=== PATIENT | male | born 1945 | race Caucasian/White ===

== ENCOUNTER 2016-12-23 06:56 | Outpatient (CLI) | payer MEDICARE ==
[~2016-12-23] VITALS: Ht 175.3 cm; Wt 92.3 kg
--- NOTE | ~2016-12-23 | HEMODYNAMI ---
PATIENT:ELY CEJA MEDICAL RECORD: [id number] : 49 LOCATION:[facility] ADMISSION DATE: 12/23/16 Generatedon:12/23/201610:37 Patient name: ELY CEJA Patient #: [id number] SSN: DO B: 1945 Date of study: 12/23/2016 Page: Of Hemodynamic Procedure Report Patient Data Patient Demographics Procedure consent was obtained First Name: ELY Gender: Male Last Name: MARCIAL : 1945 [facility] Initial: L Age: 71 year(s) Patient #: [id number] Race: Additional ID: [id number] Contact details [address]: [address] [place] [address] [facility] State: [place] City: [place] Zip code: [address] Past Medical History Allergies Allergen Reaction Date Comments Reported Morphine 03/25/2016 Other allergy 12/23/2016 morphine Admission Admission Data Admission Date: 12/23/2016 Admission Time: 6:56 Lab Results Lab Result Date: 12/23/2016 Lab Result Time: 7:20 Biochemistry Name Units Result Min Max BUN mg/dl 23 --(----)-* 7 18 Creatinine mg/dl 1.5 --(----)-* 0.6 1.3 CBC Name Units Result Min Max Hematocrit % 39.2 -*(----)-- 42 54 Hemoglobin g/dl 13.6 --(*---)-- 13.5 17.5 Procedure Procedure Types Cath Procedure Peripheral Cath Diagnostic Procedure Cath Peripheral Kejds-Ozvesbg-Lbg-Off Procedure Description Procedure Date Procedure Date: 12/23/2016 Procedure Start Time: 10:25 Procedure End Time: 10:36 Procedure Staff Name Function Cristóbal Cardenas MD Performing Physician Ana Rodriguez RT Scrub Judith Holder RN Nurse Jose Enrique Nava RT Monitor Procedure Data Cath Procedure Fluoroscopy Diagnostic fluoroscopy Total fluoroscopy Time: 0.8 time: 0.8 min min Diagnostic fluoroscopy Total fluoroscopy dose: 221 dose: 221 mGy mGy Contrast Material Contrast Material Type Amount (ml) Isovue 300 72 Entry Location Entry Primary Successful Side Size Upsize Upsize Entry Closure Succes sful Closure Location (Fr) 1 (Fr) 2 (Fr) Remarks Device Remarks Femoral Right 5 Fr Exoseal artery Estimated blood loss: 5 ml Diagnostic catheters Device Type Used For End Catheter Placement Cordis Tempo 5Fr UF Procedure catheter Procedure Complications No complications Procedure Medications Medication Administration Route Dosage Oxygen NC 2 l/min Lidocaine 2% added to field 20 Heparin Flush Bag added to field 2 bags (1000units/500ml NS) 0.9% NaCl I.V. 100 ml/hr Versed I.V. 1 mg Fentanyl I.V. 50 mcg Versed I.V. 1 mg Fentanyl I.V. 50 mcg Hemodynamics Rest HGB: 13.6 (g/dl) Heart Rate: 54 (bpm) Snapshots Pre Cath Intra NCS Post Cath Vital Signs Time Heart Resp SPO2 etCO2 HR1sauh NIBP (mmHg) Rhythm Pain Sedation Rate (ipm) (%) (mmHg) (mmHg) Status Level (bpm) 10:09:32 54 17 98 0 0 126/72(107) NSR 0 (11) 10(A) , No pain 10:13:48 50 15 97 0 0 126/72(111) NSR 0 (11) 10(A) , No pain 10:18:02 60 15 95 0 0 129/67(91) NSR 0 (11) 10(A) , No pain 10:22:16 58 16 95 0 0 96/74(90) NSR 0 (11) 9(A) , No pain 10:26:20 58 15 95 0 0 108/67(85) NSR 0 (11) 9(A) , No pain 10:30:28 57 15 96 0 0 110/69(88) NSR 0 (11) 9(A) , No pain 10:34:35 56 16 97 0 0 107/73(93) NSR 0 (11) 10(A) , No pain Medications Time Medication Route Dose Verified Delivered Reason Notes Effe ctiveness by by 10:15:56 Oxygen NC 2 Cristóbal Buffie used for l/min Ronald Holder crop research scientist 10:16:03 Lidocaine 2% added 20ml Cristóbal Cristóbal for local to vial Ronald Cardenas MD anesthetic field 10:16:08 Heparin Flush added 2 Cristóbal Cristóbal used for Bag to bags Ronald Cardenas MD procedure (1000units/500ml field NS) 10:16:18 0.9% NaCl I.V. 100 Cristóbal Buffie Per ml/hr Ronald Holder RN physician 10:17:51 Versed I.V. 1 mg Cristóbal Buffie for Ronald Holder RN sedation 10:17:59 Fentanyl I.V. 50 Cristóbal Buffie for mcg Ronald Holder RN sedation 10:26:02 Versed I.V. 1 mg Cristóbal Buffie for Ronald Holder RN sedation 10:26:06 Fentanyl I.V. 50 Cristóbal Buffie for mcg Ronald Holder RN sedation Procedure Log Time Note 9:47:01 Judith Holder RN sent for patient. Start room use. 9:47:02 Time tracking: Regular hours 9:47:07 Plan of Care:Hemodynamics will remain stable., Cardiac rhythm will remain stable., Comfort level will be maintained., Respiratory function will remain adequate., Patient/ family verbilizes understanding of procedure., Procedure tolerated without complication., Recovers from procedure without complications.. 9:59:38 Patient received from Pre/Post Procedure Room to CCL 1 Alert and oriented. Tansferred to table in Supine position. 9:59:39 Warm blankets applied, and lavell hugger turned on for patient comfort. 9:59:40 Correct patient and procedure confirmed by team. 9:59:41 Signed procedure consent form obtained from patient. 9:59:43 ECG and BP/O2 sat monitors applied to patient. 9:59:43 Full Disclosure recording started 10:08:24 Vital chart was started 10:10:06 H&P Date Dictated: 12/04/2016 Within 30 days and on chart., H&P Addendum completed by physician on day of procedure. (MUST COMPLETE FOR ALL OUTPATIENTS). 10:10:08 Pre-procedure instructions explained to patient. 10:10:08 Pre-op teaching completed and patient verbalized understanding. 10:10:10 Family in waiting room. 10:10:13 Patient NPO since Midnight. 10:10:21 Patient allergic to Other allergymorphine 10:10:24 Is the patient allergic to Iodine/contrast media? No. 10:10:25 Is patient on blood thinner?No 10:10:26 Patient diabetic? No. 10:10:36 Previous problem with sedation/anesthesia? No ? 10:10:37 Snore? Yes 10:10:38 Sleep apnea? Yes 10:10:41 Deviated septum? No 10:10:43 Opens mouth fully? Yes 10:10:46 Sticks out tongue? Yes 10:10:49 Airway obstruction? No ? 10:10:52 Dentures? Yes OUT 10:10:57 Patient pain scale 0/10 ?. 10:11:04 IV patent on arrival in left hand with 0.9% NaCl at [facility]. 10:12:19 Lab Result : BUN 23 mg/dl 10:12:20 Lab Result : Creatinine 1.5 mg/dl 10:12:20 Lab Result : Hematocrit 39.2 % 10:12:20 Lab Result : Hemoglobin 13.6 g/dl 10:12:23 Lab results completed and on chart. 10:12:26 Bilateral groins area was prepped with chlora-prep and draped in sterile fashion 10:12:27 Alarms reviewed by R. N. 10:12:28 Sharps counted by scrub and verified by R.N. 10:12:35 Tegaderm 4 x 4 opened to sterile field. 10:12:35 Diagnostic Infinity 5Fr Multipack catheter opened to sterile field. 10:12:36 Acist Manifold opened to sterile field. 10:12:37 Acist Hand Control opened to sterile field. 10:12:38 Acist Syringe opened to sterile field. 10:12:39 Bag Decanter opened to sterile field. 10:12:39 Medline Cath Pack opened to sterile field. 10:12:40 Terumo 5Fr [place] Sheath opened to sterile field. 10:12:40 St Jacob 260cm J .035 wire opened to sterile field. 10:15:19 Physician arrived 10:15:19 --------ALL STOP TIME OUT------ 10:15:20 Final Timeout: patient, procedure, and site verified with staff and physician. All members of the team are in agreement. 10:15:22 Bilateral groins site verified by team. 10:15:24 Physical assessment completed. ASA score P 2 - A patient with mild systemic disease as per Cristóbal Cardenas MD. 10:15:27 Sedation plan: IV Moderate Sedation Versed, Fentanyl 10:15:56 Oxygen 2 l/min NC was administered by Judith Holder RN; used for procedure; 10:16:03 Lidocaine 2% 20ml vial added to field was administered by Cristóbal Cardenas MD; for local anesthetic; 10:16:08 Heparin Flush Bag (1000units/500ml NS) 2 bags added to field was administered by Cristóbal Cardenas MD; used for procedure; 10:16:18 0.9% NaCl 100 ml/hr I.V. was administered by Judith Holder RN; Per physician; 10:16:44 Baseline sample Acquired. 10:16:52 Rhythm: sinus rhythm 10:17:51 Versed 1 mg I.V. was administered by Judith Holder RN; for sedation; 10:17:59 Fentanyl 50 mcg I.V. was administered by Judith Holder RN; for sedation; 10:23:37 Zero performed for pressure channel P1 10:23:56 Procedure started. 10:25:02 Tick found on Pt's left groin. Tick was removed and appeard in tact. 10:25:09 Local anesthetic to right femoral artery with Lidocaine 2% by Cristóbal Cardenas MD.INITIAL ACCESS ONLY 10:26:02 Versed 1 mg I.V. was administered by Judith Holder RN; for sedation; 10:26:06 Fentanyl 50 mcg I.V. was administered by Judith Holder RN; for sedation; 10:27:38 A 5 Fr sheath was inserted into the Right Femoral artery 10:28:01 A Cordis Tempo 5Fr UF catheter was advanced over the wire and used for Procedure. 10:28:55 Abdominal angiogram w/ runoff was performed. 10:29:37 Left leg runoff performed. 10:30:08 Right leg runoff performed. 10:30:40 Catheter removed. 10:31:34 Cordis 5Fr Exoseal opened to sterile field. 10:31:44 Sheath removed intact; hemostasis achieved with Exoseal to the Right Femoral artery. 10:31:45 Procedure ended.(Physican Out) 10:32:51 Fluoroscopy time 00.80 minutes. 10:32:54 Fluoroscopy dose: 221 mGy 10:32:54 Flurop Dose total: 221 10:33:04 Contrast amount:Isovue 300 72ml. 10:33:08 Sharps counted by scrub and verified by R.N. 10:33:11 Insertion/operative site no bleeding no hematoma. 10:33:13 Post-op/insertion site Right Femoral artery dressed using a 4 x 4 and Tegaderm. 10:33:16 Post right femoral artery:stable, soft, clean and dry 10:33:18 Post Procedure Pulses reassessed and unchanged 10:33:20 Post-procedure physical assessment completed. ASA score P 2 - A patient with mild systemic disease as per Cristóbal Cardenas MD. 10:33:22 Post procedure rhythm: unchanged. 10:33:24 Estimated blood loss: 5 ml 10:33:26 Post procedure instruction explained to patient.Patient verbalizes understanding. 10:33:26 Patient needs reinforcement of post procedure teaching. 10:35:52 Procedure type changed to Cath procedure, Peripheral Cath Diagnostic Procedure, Cath Peripheral, Mnlnv-Hrnokse-Dug-Off 10:36:46 Procedure and supply charges have been captured, reviewed, submitted and are correct. 10:36:48 Procedure Complication : No complications 10:36:50 Vital chart was stopped 10:36:50 See physician's report for complete and final results. 10:36:52 Report given to Pre/Post Procedure Room. 10:36:54 Patient transfered to Pre/Post Procedure Room with Stretcher. 10:36:56 Procedure ended. 10:36:56 Full Disclosure recording stopped 10:36:59 End room use (Document Last) Device Usage Item Name Manufacture Quantity Catalog Hospital Part Current Minimal Lo t# / Number Charge Number Stock Stock Serial# Code Tegaderm 4 3M 1 [id number] 5 x 4 Diagnostic Cardinal 1 [id number] 31470 [id number] 30 Datorama 5Fr Multipack catheter Acist Acist 1 96749 736483 363382 988803 5 Manifold [employer] Inc Acist Hand Acist 1 28654 379613 062021 479765 5 Control Medical Systems Inc Acist Acist 1 74780 426029 056605 923354 20 Syringe Medical Systems Inc Bag Microtek 1 2002S 068066 90217 028398 5 Decanter [employer] Inc. Medline Cardinal 1 [id number] 482280 48789 726755 5 Cath Pack Health Terumo 5Fr Terumo 1 [id number] 499194 956026 330812 [address] Jacob 1 214911 905269 676287 687965 30 260cm J .035 wire Cordis Cardinal 1 [id number] 566832 950500 572139 10 Tempo 5Fr Health UF catheter Cordis 5Fr Cardinal 1 [id number] 771896 654865 801342 10 [facility] Health Signature Audit [place] Stage Time Signature Unsigned Intra-Procedure 12/23/2016 Jose Enrique Nava 10:37:15 AM RT(R) Signatures Monitor : Jose Enrique Nava RT Signature : Date : Time : [place] [id number] [place] [address]
[~2016-12-23 06:56] MED LIST: ARNICA MONTANA PO; COZAAR50 MG PO; FLOMAX0.4 MG PO; LIPITOR20 MG PO; LUPRON DEPOT IM; MULTIPLE VITAMI1 TA1 PO
[2016-12-23] MEDS ORDERED: VESICARE10 MG PO (07:12)
[2016-12-23 07:21] VITALS: BP 134/82; Ht 175.3 cm; Wt 92.3 kg
[2016-12-23 07:41] LABS: CALCIUM 8.5 mg/dL (8.5-10.1); CARBON DIOXIDE 24.2 mmol/L (21.0-32.0); CREATININE - SERUM 1.5 mg/dL (0.6-1.3); POTASSIUM - SERUM 4.2 mmol/L (3.5-5.1)
[2016-12-23 08:23] LABS: BASOPHILS 0 % (0-2); EOSINOPHILS 5.5 % (0-7); HEMATOCRIT 39.2 % (42.0-54.0); HEMOGLOBIN 13.6 g/dL (13.5-17.5); LYMPHOCYTES 23.9 % (15-50); MCH 32.5 pg (26.0-34.0); MCHC 34.7 g/dL (31.0-37.0); MCV 93.6 fL (80.0-100.0); MEAN PLATELET VOLUME 9.5 fL (7.4-10.4); MONOCYTES 9.2 % (2-11); NEUTROPHILS 61.4 % (40-80); PLATELET COUNT 188 10x3/uL (130-400); RBC 4.19 10x6/uL (4.20-6.10); RDW 13.6 % (11.5-14.5); WBC 3.3 10x3/uL (4.8-10.8)
--- NOTE | 2016-12-23 10:52 | NUR ---
RECIEVED TO ROOM VIA STRETCHER FROM NATIONAL SALES REPRESENTATIVE WITH REPORTS OF A CLEAN CATH NO INTERVENTION AT THIS TIME. 5 FR EXOSEAL R/GROIN CDI NO BLEEDING NO HEMATOMA NOTED. INSTRUCTED PATIENT TO KEEP HEAD FLAT ON PILLOW WITH RLE STRAIGHT BP 119/69, HR 51 RESP 12 SAT 98%
--- NOTE | 2016-12-23 11:02 | NUR ---
5 FR EXOSEAL R/GROIN CDI NO BLEEDING NO HEMATOMA NOTED. VSS WITH CHEST PAIN DENIED
--- NOTE | 2016-12-23 11:13 | NUR ---
RESTING QUIELTY WITH NO DISTRESS NOTED. VSS R/GROIN CDI
--- NOTE | 2016-12-23 11:41 | NUR ---
NO CHANGE IN ASSESSMENT R/GROIN CDI
--- NOTE | 2016-12-23 12:11 | NUR ---
CHEST PAIN DENIED WITH VSS R/GROIN CDI NO HEMATOMA NOTED
--- NOTE | 2016-12-23 12:32 | NUR ---
REPOSITIONED TO SITTING WITH HOB UP 45 DEGREES. CHEST PAIN DENIED WITH R/GROIN CDI. SANDWICH AND SODA TO BEDSIDE
--- NOTE | 2016-12-23 12:45 | NUR ---
PIV REMOVED WITH DRESSING APPLIED. CHEST PAIN IS DENIED AT THIS TIME PATIENT UP TO GET DRESSED FOR DISCHARGE HOME. 5 FR EXOSEAL R/GROIN INTACT CDI
--- NOTE | 2016-12-23 12:52 | NUR ---
VERBAL AND WRITTEN DISCHARGE GONE OVER WITH PATIENT AND FAMILY. CHEST PAIN IS DENIED WITH R/GROIN CDI. PATIENT LEFT VIA WC TO PARKING FOR TRANSPORT HOME
== END 2016-12-23 12:59 ==
LOC: D.CATH 06:56
PROVIDERS: Internal Medicine Cardiovascular Disease
DX: I70.213 Atherosclerosis of native arteries of extremities with intermittent claudication, bilateral legs (principal); I10 Essential (primary) hypertension; E78.5 Hyperlipidemia, unspecified; I35.1 Nonrheumatic aortic (valve) insufficiency; Z01.812 Encounter for preprocedural laboratory examination

== ENCOUNTER → 2017-02-15 15:41 | Outpatient (CLI) | payer MEDICARE ==
[~2017-02-15 15:41] MED LIST changes: +VESICARE10 MG PO
== END | disposition home or self-care (01) ==
LOC: D.MRI 15:41
DX: M25.519 Pain in unspecified shoulder (principal)

== ENCOUNTER → 2017-06-03 11:18 | Outpatient (CLI) | payer MEDICARE ==
[~2017-06-03 11:18] MED LIST changes: +BACTRIM DS TABL1 TAB PO; +OXYCODONE HCL5 MG PO; +TAMIFLU75 MG PO
== END | disposition home or self-care (01) ==
LOC: D.LABREF 11:18
DX: M19.011 Primary osteoarthritis, right shoulder (principal); Z11.8 Encounter for screening for other infectious and parasitic diseases

== ENCOUNTER 2017-06-29 05:05 | Inpatient (IN) | payer MEDICARE ==
[2017-06-28 10:22] LABS: BASOPHILS 0 % (0-2); EOSINOPHILS 1.9 % (0-7); HEMATOCRIT 39.9 % (42.0-54.0); HEMOGLOBIN 13.2 g/dL (13.5-17.5); LYMPHOCYTES 26.6 % (15-50); MCH 31.4 pg (26.0-34.0); MCHC 33.1 g/dL (31.0-37.0); MCV 94.8 fL (80.0-100.0); MEAN PLATELET VOLUME 8.9 fL (7.4-10.4); MONOCYTES 16.2 % (2-11); NEUTROPHILS 55.3 % (40-80); PLATELET COUNT 163 10x3/uL (130-400); RBC 4.21 10x6/uL (4.20-6.10); RDW 13.9 % (11.5-14.5); WBC 3.1 10x3/uL (4.8-10.8)
[2017-06-28 10:27] LABS: APPEARANCE CLEAR (CLEAR); COLOR YELLOW (YELLOW); NITRITE NEGATIVE (NEGATIVE); SPECIFIC GRAVITY 1.015 (1.005-1.020)
[2017-06-28 10:28] LABS: BILIRUBIN NEGATIVE (NEGATIVE); GLUCOSE NEGATIVE (NEGATIVE); KETONE NEGATIVE (NEGATIVE); PROTEIN NEGATIVE (NEGATIVE); UROBILINOGEN NORMAL (NORMAL)
[2017-06-28 10:30] LABS: BACTERIA FEW /hpf (NONE SEEN); EPITHELIAL CELLS RARE /hpf (0-5); MUCUS <1+ /lpf (NONE SEEN); RED CELLS - URINE 0-5 /hpf (0-5); WHITE CELLS - URINE RARE /hpf (0-5)
[2017-06-28 10:32] LABS: APTT 25.8 SECONDS (22.8-39.4); INR 0.96 (0.85-1.17); PROTIME 12.4 SECONDS (11.6-15.0)
[2017-06-28 10:35] LABS: ANION GAP 12.7 mmol/L (8-16); CALCIUM 8.5 mg/dL (8.5-10.1); CARBON DIOXIDE 26.6 mmol/L (21.0-32.0); CREATININE - SERUM 1.6 mg/dL (0.6-1.3); POTASSIUM - SERUM 4.3 mmol/L (3.5-5.1)
[~2017-06-29] VITALS: Ht 175.3 cm; Wt 92.1 kg
--- NOTE | ~2017-06-29 | OP ---
PATIENT NAME: ELY CEJA MEDICAL RECORD: [id number] :49 [facility] [place] ADMISSION DATE:06/29/17 SURGEON: JONAH LAGUNA DO DATE OF OPERATION: 06/29/2017 PROCEDURE PERFORMED: Right reverse total shoulder arthroplasty. PREOPERATIVE DIAGNOSIS: Right shoulder rotator cuff arthropathy. POSTOPERATIVE DIAGNOSIS: Right shoulder rotator cuff arthropathy. INDICATION FOR PROCEDURE: Mr. Ceja is a 72-year-old male who presented to my office quite a few months ago with an MRI that had complete tears of his supraspinatus and infraspinatus of the rotator cuff. He had weakness and pain; however, he did not want to miss hunting season and he had things to do he said before the end of the year, so he wanted to delay the surgery. I had told him that he could try rotator cuff repair, although due to the retraction and questionable tissue, I may not be able to repair it and suggested reverse total shoulder arthroplasty and informed him of the risks and benefits of both and he chose to do reverse total shoulder arthroplasty. Once that was agreed upon I saw him back in the office about a month ago to discuss surgery and he consented to the procedure. ANESTHESIA: The patient was given a block preoperatively by anesthesia. SURGEON: Jonah Laguna DO ESTIMATED BLOOD LOSS: 200 mL COMPLICATIONS: None. DESCRIPTION OF PROCEDURE: The patient was then taken to the operative suite, given 900 mg clindamycin preoperatively. Timeout was performed and everyone was in agreeance of correct side, site, and patient. The right shoulder was prepped and draped in sterile fashion. Once this was done, the incision was marked out and an Ioban was placed around the drapes. After this was done, the incision began in the deltopectoral interval. Careful dissection was made down with a knife and then with a plasma knife to the deltopectoral interval. The proximal centimeter of the pack was released at that time and the biceps was tenodesed to the humerus stump above the pectoralis tendon and then tenotomized. The shoulder joint itself was then opened up. There was a large spur on the lesser tuberosity as well as tear of the supraspinatus and infraspinatus were noted. Once the subscapularis was peeled off, his shoulder dislocated and the guide was put in the medullary canal of the humerus and the humerus was cut 30 degrees of retroversion. After the humerus cut, the glenoid was exposed and a guide was used to find the proper location for the center peg. A guidepin was then put into place and felt on the anterior portion of the scapula to be in good position just at the valley of the most medial part of the glenoid and then measured to be 30. Once that was done, reamer was used to ream for the implant. A 25 was first tried thinking that we would get good bite. There must have been a cyst or something of the glenoid and we did not get a good bit. A 30 was put in and again not agree by but had some stability. Then, the 4 screws were put around the periphery. The superior and inferior screws were put into place and with compression screws and the anterior and posterior locking and then the superior and inferior screws were changed out to be locking screws. The OPERATIVE REPORT [id number] MARCIALELY L baseplate was then very solid and did not move at all. The glenosphere was then put into place and tightened. The humerus was then exposed and prepared and broached up to a 6. The 6, we tried to reduce and seemed to be too tight and then went down to a 5 and then used the reamer to take off more humerus and then the 5 was trialed, having resected more humerus and there was a very good fit. The conjoined tendon was appropriate tautness as well as the deltoid and was very stable. Shoulder had good range of motion with internal and external and forward flexion, abduction and seemed to be very stable. Then, the implant for the humerus was put into place. Shoulder was reduced and again ranged and noted to be in very good position and very stable. We then thoroughly irrigated the shoulder. A drain was put in and the interval was closed with 0 Vicryl and then the skin was closed with 2-0 Vicryl in an inverted interrupted fashion and Prineo Dermabond was used on the skin. Adaptic, 4 x 4 and ABD were then placed on and the drain was taped to the dressing. The patient was awakened and taken to recovery in stable condition. Blood loss was approximately 200 mL. Complications were none. TRANSINT:[id number] Voice Confirmation ID: [id number] DOCUMENT ID: [id number] JONAH LAGUNA DO at 1406 CC: [id number] DICTATION DATE: 06/29/17 1056 FRESH MEAT GRADER: 06/29/17 1352 ADM IN [place] [id number] [place] [id number]
[~2017-06-29 05:05] MED LIST changes: -BACTRIM DS TABL1 TAB PO; -OXYCODONE HCL5 MG PO; -TAMIFLU75 MG PO
[2017-06-29 06:46] VITALS: BP 129/73; BMI 29.6
[2017-06-29 22:12] VITALS: BP 106/71
[2017-06-30 01:36] VITALS: BP 124/74
[2017-06-30 05:11] VITALS: BP 112/71
[2017-06-30 07:20] LABS: MCH 30.7 pg (26.0-34.0); MCHC 32.7 g/dL (31.0-37.0); MCV 94.1 fL (80.0-100.0); WBC 3.3 10x3/uL (4.8-10.8)
[2017-06-30 07:21] LABS: HEMATOCRIT 30.3 % (42.0-54.0); HEMOGLOBIN 9.9 g/dL (13.5-17.5); RBC 3.22 10x6/uL (4.20-6.10)
[2017-06-30 09:50] LABS: ALBUMIN 2.7 g/dL (3.4-5.0); BILIRUBIN - TOTAL 0.4 mg/dL (0.2-1.3); CALCIUM 7.5 mg/dL (8.5-10.1); CARBON DIOXIDE 27.8 mmol/L (21.0-32.0); CREATININE - SERUM 1.4 mg/dL (0.6-1.3); POTASSIUM - SERUM 3.8 mmol/L (3.5-5.1)
[2017-06-30 10:33] VITALS: BP 108/67
[2017-06-30 11:35] VITALS: BP 136/64
[2017-06-30 14:22] VITALS: Ht 175.3 cm; Wt 92.1 kg
[2017-06-30 16:18] VITALS: BP 115/62
[2017-06-30 23:49] VITALS: BP 106/63
[2017-07-01 04:49] LABS: BASOPHILS 0 % (0-2); EOSINOPHILS 0 % (0-7); HEMATOCRIT 29.7 % (42.0-54.0); HEMOGLOBIN 9.8 g/dL (13.5-17.5); IMMATURE GRANULOCYTES 0.4 % (0-5); LYMPHOCYTES 15.2 % (15-50); MCH 30.9 pg (26.0-34.0); MCV 93.7 fL (80.0-100.0); MEAN PLATELET VOLUME 9.1 fL (7.4-10.4); MONOCYTES 9.8 % (2-11); NEUTROPHILS 74.6 % (40-80); PLATELET COUNT 142 10x3/uL (130-400); RBC 3.17 10x6/uL (4.20-6.10); RDW 14.2 % (11.5-14.5); WBC 2.6 10x3/uL (4.8-10.8)
[2017-07-01 04:55] LABS: ALBUMIN 2.7 g/dL (3.4-5.0); ANION GAP 11.4 mmol/L (8-16); BILIRUBIN - TOTAL 0.4 mg/dL (0.2-1.3); CALCIUM 7.9 mg/dL (8.5-10.1); CARBON DIOXIDE 27.3 mmol/L (21.0-32.0); CREATININE - SERUM 1.5 mg/dL (0.6-1.3); POTASSIUM - SERUM 3.7 mmol/L (3.5-5.1); PROTEIN - SERUM 5.6 g/dL (6.4-8.2)
[2017-07-01 05:25] VITALS: BP 117/72
[2017-07-01 09:27] VITALS: BP 98/57
[2017-07-01 11:34] VITALS: BP 113/64
[2017-07-01 12:26] VITALS: BP 113/64
[2017-07-01 15:42] VITALS: BP 123/64
[2017-07-01 23:10] VITALS: BP 107/65
[2017-07-02 02:43] VITALS: BP 116/73
[2017-07-02 03:57] LABS: BASOPHILS 0 % (0-2); EOSINOPHILS 0.4 % (0-7); HEMATOCRIT 26.7 % (42.0-54.0); HEMOGLOBIN 8.9 g/dL (13.5-17.5); IMMATURE GRANULOCYTES 0.4 % (0-5); LYMPHOCYTES 22.4 % (15-50); MCH 30.8 pg (26.0-34.0); MCHC 33.3 g/dL (31.0-37.0); MCV 92.4 fL (80.0-100.0); MEAN PLATELET VOLUME 8.5 fL (7.4-10.4); MONOCYTES 10.8 % (2-11); RBC 2.89 10x6/uL (4.20-6.10); RDW 14.1 % (11.5-14.5); WBC 2.3 10x3/uL (4.8-10.8)
[2017-07-02 03:59] LABS: PLATELET COUNT 112 10x3/uL (130-400)
[2017-07-02 04:09] LABS: ALBUMIN 2.3 g/dL (3.4-5.0); ANION GAP 9.7 mmol/L (8-16); BILIRUBIN - TOTAL 0.42 mg/dL (0.2-1.3); CALCIUM 8.1 mg/dL (8.5-10.1); CARBON DIOXIDE 29.2 mmol/L (21.0-32.0); CREATININE - SERUM 1.4 mg/dL (0.6-1.3); POTASSIUM - SERUM 3.9 mmol/L (3.5-5.1); PROTEIN - SERUM 5.4 g/dL (6.4-8.2)
[2017-07-02 05:13] VITALS: BP 101/54
[2017-07-02 10:02] VITALS: BP 104/58
[2017-07-02 12:39] VITALS: BP 112/61
[2017-07-02 16:30] VITALS: BP 120/60
[2017-07-02 22:06] VITALS: BP 106/61
[2017-07-03 04:38] LABS: BASOPHILS 0 % (0-2); EOSINOPHILS 1.9 % (0-7); HEMATOCRIT 26.8 % (42.0-54.0); LYMPHOCYTES 19.8 % (15-50); MCH 30.7 pg (26.0-34.0); MCHC 33.6 g/dL (31.0-37.0); MCV 91.5 fL (80.0-100.0); MEAN PLATELET VOLUME 8.8 fL (7.4-10.4); MONOCYTES 8.9 % (2-11); NEUTROPHILS 69.4 % (40-80); PLATELET COUNT 125 10x3/uL (130-400); RBC 2.93 10x6/uL (4.20-6.10); RDW 14.1 % (11.5-14.5); WBC 2.6 10x3/uL (4.8-10.8)
[2017-07-03 04:54] LABS: ALBUMIN 2.3 g/dL (3.4-5.0); ANION GAP 11.1 mmol/L (8-16); BILIRUBIN - TOTAL 0.6 mg/dL (0.2-1.3); CARBON DIOXIDE 27.8 mmol/L (21.0-32.0); CREATININE - SERUM 1.3 mg/dL (0.6-1.3); POTASSIUM - SERUM 3.9 mmol/L (3.5-5.1); PROTEIN - SERUM 5.6 g/dL (6.4-8.2)
[2017-07-03 07:03] VITALS: BP 127/78
[2017-07-03] MEDS ORDERED: OXYCODONE HCL5 MG PO (09:15)
[2017-07-03] MEDS ORDERED: TAMIFLU75 MG PO (09:15)
[2017-07-03] MEDS ORDERED: BACTRIM DS TABL1 TAB PO (09:16)
== END 2017-07-03 14:59 | disposition home or self-care (01) | DRG 483 ==
LOC: D.MS 05:05 → D.SDCHOLD 05:05 → D.MS 17:13
PROVIDERS: Family Medicine; Orthopaedic Surgery
PROC: 0RRJ00Z Replacement of Right Shoulder Joint with Reverse Ball and Socket Synthetic Substitute, Open Approach (ICD-10-PCS; principal; 2017-06-29 09:00)
DX: M75.101 Unspecified rotator cuff tear or rupture of right shoulder, not specified as traumatic (principal); D62 Acute posthemorrhagic anemia; I10 Essential (primary) hypertension; J11.1 Influenza due to unidentified influenza virus with other respiratory manifestations

== ENCOUNTER → 2018-05-05 08:16 | Outpatient (CLI) | payer MEDICARE ==
[2017-06-30 14:22] VITALS: BMI 29.9
[~2018-05-05 08:16] MED LIST changes: +BACTRIM DS TABL1 TAB PO; +OXYCODONE HCL5 MG PO; +TAMIFLU75 MG PO
== END | disposition home or self-care (01) ==
LOC: D.NM 08:15
DX: C61 Malignant neoplasm of prostate (principal); I10 Essential (primary) hypertension; E78.2 Mixed hyperlipidemia; C18.7 Malignant neoplasm of sigmoid colon

== ENCOUNTER → 2018-08-09 08:10 | Outpatient (CLI) | payer MEDICARE ==
[2017-06-30 14:22] VITALS: BMI 29.9
== END | disposition home or self-care (01) ==
LOC: D.HCCARDIO 08:10
PROVIDERS: ATTEND Internal Medicine Cardiovascular Disease
DX: I20.9 Angina pectoris, unspecified (principal)

== ENCOUNTER 2018-08-23 10:34 | Outpatient (CLI) | payer MEDICARE ==
[~2018-08-23] VITALS: Ht 175.3 cm; Wt 92.3 kg
--- NOTE | ~2018-08-23 | HEMODYNAMI ---
PATIENT:ELY CEJA MEDICAL RECORD: [id number] : [birth year] LOCATION:[facility] ADMISSION DATE: 08/23/18 Generatedon:08/24/20187:51 Patient name: ELY CEJA Patient #: [id number] SSN: DO B: 06/28/1944 Date of study: 08/23/2018 Page: Of Hemodynamic Procedure Report Patient Data Patient Demographics Procedure consent was obtained First Name: ELY Gender: Male Last Name: MARCIAL : 06/28/1944 [facility] Initial: L Age: 74 year(s) Patient #: [id number] Race: Additional ID: [id number] Contact details [address]: [address] [place] [address] [facility] State: [place] City: [place] Zip code: [address] Past Medical History Allergies Allergen Reaction Date Comments Reported Morphine 03/25/2016 Other allergy 12/23/2016 morphine Admission Admission Data Admission Date: 08/23/2018 Admission Time: 10:34 Admit Source: Other Procedure Procedure Types Cath Procedure Diagnostic Procedure [facility] w/Coronaries Aortic Root Angiography Procedure Description Procedure Date Procedure Date: 08/23/2018 Procedure Start Time: 15:19 Procedure End Time: 15:34 Procedure Staff Name Function Adriana Covarrubias RT Scrub Cristóbal Cardenas MD Performing Physician Asad Lizarraga RT Monitor Rachel Valles RN Nurse Procedure Data Cath Procedure Fluoroscopy Diagnostic fluoroscopy Total fluoroscopy Time: 3.3 time: 3.3 min min Diagnostic fluoroscopy Total fluoroscopy dose: 694 dose: 694 mGy mGy Contrast Material Contrast Material Type Amount (ml) Isovue 300 85 Entry Location Entry Primary Successful Side Size Upsize Upsize Entry Closure Succes sful Closure Location (Fr) 1 (Fr) 2 (Fr) Remarks Device Remarks Femoral Right 5 Fr Exoseal artery Diagnostic catheters Device Type Used For End Catheter Placement MULTIPACK JL 4.0 5Fr Left Coronary catheter Angiography MULTIPACK 3DRC 5Fr Right Coronary catheter Angiography MULTIPACK Pigtail 5 Fr LV Angiography catheter Procedure Complications No complications Procedure Medications Medication Administration Route Dosage 0.9% NaCl I.V. 100 ml/hr Oxygen etCO2 Nasal cannula 2 l/min Lidocaine 2% added to field 20 Heparin Flush Bag added to field 2 bags (1000units/500ml NS) Versed I.V. 2 mg Fentanyl I.V. 50 mcg Versed I.V. 1 mg Fentanyl I.V. 25 mcg Hemodynamics Rest Heart Rate: 50 (bpm) Pressure Samples Time Site Value (mmHg) Purpose Heart Use Rate(bpm) 15:29 LV 109/-6,4 EDP 70 15:29 LV 109/-4,7 Snapshot 67 15:30 LV 106/-5,6 Pullback 68 15:30 AO 150/58(91) Pullback 68 Gradients Valve Time Site 1 Site 2 Mean SEP/DFP Peak To Heart Use (mmHg) (sec/min) Peak Rate (mmHg) (bpm) Aortic 15:30 LV AO 0 68 106/-5,6 150/58(91) Calculations Valve P-P Mean Valve Index Valve Source Name Gradient Area Flow (cm2) Aortic 0 0 Snapshots Pre Cath Intra NCS Post Cath Vital Signs Time Heart Resp SPO2 etCO2 NIBP Rhythm Pain Sedation Rate (ipm) (%) (mmHg) (mmHg) Status Level (bpm) 15:04:04 70 12 99 35.3 113/67(96) NSR 0 (11) 10(A) , No pain 15:08:12 71 14 97 31.6 105/69(84) NSR 0 (11) 10(A) , No pain 15:12:24 71 11 97 12.8 115/61(79) NSR 0 (11) 10(A) , No pain 15:16:32 69 13 98 20.3 111/72(91) NSR 0 (11) 10(A) , No pain 15:20:44 73 11 98 30.8 111/66(89) NSR 0 (11) 10(A) , No pain 15:24:56 72 14 98 19.5 117/66(82) NSR 0 (11) 9(A) , No pain 15:29:06 69 16 97 22.5 111/71(90) NSR 0 (11) 9(A) , No pain 15:33:16 64 15 98 36.8 120/76(98) NSR 0 (11) 10(A) , No pain Medications Time Medication Route Dose Verified Delivered Reason Notes Eff ectiveness by by 15:04:12 0.9% NaCl I.V. 100 Cristóbal Rachel used for ml/hr Ronald Valles machine packaging technician 15:04:18 Oxygen etCO2 2 Cristóbal Rachel used for Nasal l/min Ronald Valles procedure cannula RN 15:04:23 Lidocaine 2% added 20ml Cristóbal Cristóbal for local to vial Ronald Cardenas MD anesthetic field 15:04:28 Heparin Flush added 2 Cristóbal Cristóbal used for Bag to bags Ronald Cardenas MD procedure (1000units/500ml field NS) 15:15:11 Versed I.V. 2 mg Cristóbal Rachel for Ronald Valles sedation RN 15:15:16 Fentanyl I.V. 50 Cristóbal Rachel for mcg Ronald Valles sedation RN 15:20:19 Versed I.V. 1 mg Cristóbal Rachel for Ronald Valles sedation RN 15:20:32 Fentanyl I.V. 25 Cristóbal Rachel for mcg Ronald Valles sedation keyboard teacher Log Time Note 14:52:04 Admit Source: Other 14:52:32 Diagnostic Cath status Elective 14:52:34 Adriana Covarrubias RT(R) sent for patient. Start room use. 14:52:36 Time tracking: Regular hours (M-F 7:00 - 5:00) 14:52:41 Plan of Care:Hemodynamics will remain stable., Cardiac rhythm will remain stable., Comfort level will be maintained., Respiratory function will remain adequate., Patient/ family verbilizes understanding of procedure., Procedure tolerated without complication., Recovers from procedure without complications.. 15:02:41 Patient received from Pre/Post Procedure Room to CCL 1 Alert and oriented. Tansferred to table in Supine position. 15:02:43 Warm blankets applied, and lavell hugger turned on for patient comfort. 15:02:44 Correct patient and procedure confirmed by team. 15:02:45 Signed procedure consent form obtained from patient. 15:02:47 Vital chart was started 15:02:47 ECG and BP/O2 sat monitors applied to patient. 15:02:49 Baseline sample Acquired. 15:02:55 Rhythm: sinus rhythm 15:02:57 Full Disclosure recording started 15:03:01 H&P Date Dictated: 08/23/2018 Within 30 days and on chart., H&P Addendum completed by physician on day of procedure. (MUST COMPLETE FOR ALL OUTPATIENTS). 15:03:03 Pre-procedure instructions explained to patient. 15:03:04 Pre-op teaching completed and patient verbalized understanding. 15:03:05 Family in waiting room. 15:03:06 Patient NPO since Midnight. 15:03:08 Is the patient allergic to Iodine/contrast media? No. 15:03:09 Was the patient premedicated? No 15:03:10 Is patient on blood thinner?No 15:03:12 Patient diabetic? No. 15:03:15 Previous problem with sedation/anesthesia? No ? 15:03:17 Snore? Yes 15:03:18 Sleep apnea? Yes 15:03:19 Deviated septum? No 15:03:20 Opens mouth fully? Yes 15:03:21 Sticks out tongue? Yes 15:03:23 Airway obstruction? No ? 15:03:26 Dentures? No ? 15:03:30 Pre procedure: right dorsailis pedis pulse 2+ Normal; easily identifiable; not easily obliterated 15:03:32 Pre procedure: left dorsailis pedis pulse 2+ Normal; easily identifiable; not easily obliterated 15:03:33 Patient pain scale 0/10 ?. 15:03:40 IV patent on arrival in left forearm with 0.9% NaCl at [facility]. 15:03:42 Lab results completed and on chart. 15:03:49 Right groin area was prepped with chlora-prep and draped in sterile fashion 15:03:50 Sharps counted by scrub and verified by R.N. 15:03:50 Alarms reviewed by R. N. 15:04:12 0.9% NaCl 100 ml/hr I.V. was administered by Rachel Valles RN; used for procedure; 15:04:18 Oxygen 2 l/min etCO2 Nasal cannula was administered by Rachel Valles RN; used for procedure; 15:04:23 Lidocaine 2% 20ml vial added to field was administered by Cristóbal Cardenas MD; for local anesthetic; 15:04:28 Heparin Flush Bag (1000units/500ml NS) 2 bags added to field was administered by Cristóbal Cardenas MD; used for procedure; 15:13:29 Zero performed for pressure channel P1 15:14:51 Physician arrived 15:14:52 Final Timeout: patient, procedure, and site verified with staff and physician. All members of the team are in agreement. 15:14:52 --------ALL STOP TIME OUT------ 15:14:54 Right groin site verified by team. 15:14:57 Maximum allowable Isovue 300 dose 300ml. Physician notified. (300ml for normal creatinines. For patients with creatinine of 1.7 or higher multiply weight(kg) x 5 divided by creatinine.) 15:15:03 Fire Safety Assessment: A--An alcohol-based skin anteseptic being used preoperatively., C--Open oxygen or nitrous oxide is being used., D--An ESU, laser, or fiber-optic light is being used. 15:15:07 Physical assessment completed. ASA score P 2 - A patient with mild systemic disease as per Asad Lizarraga RT(R). 15:15:10 Sedation plan: IV Moderate Sedation Medication:Versed, Fentanyl 15:15:11 Versed 2 mg I.V. was administered by Rachel Valles RN; for sedation; 15:15:16 Fentanyl 50 mcg I.V. was administered by Rachel Valles RN; for sedation; 15:18:00 Use device set Femoral Dx 15:18:01 Bag Decanter () opened to sterile field. 15:18:01 ACIST Syringe (59056) opened to sterile field. 15:18:02 DIAGNOSTIC WIRE .035 260cm J wire (771245) opened to sterile field. 15:18:02 Medline Cath Pack ([id number]) opened to sterile field. 15:18:04 ACIST Manifold (83446) opened to sterile field. 15:18:04 ACIST Hand Control (39471) opened to sterile field. 15:18:05 DIAGNOSTIC Multipack 5Fr catheter set ([id number]) opened to sterile field. 15:18:06 Tegaderm 4 x 4 (1626W) opened to sterile field. 15:18:08 SHEATH 5FR [place] (FVX296) opened to sterile field. 15:18:39 Procedure started. 15:19:24 Local anesthetic to right femoral artery with Lidocaine 2% by Asad CALDERON(R).INITIAL ACCESS ONLY 15:19:33 A 5 Fr sheath was inserted into the Right Femoral artery 15:: Versed 1 mg I.V. was administered by Rachel Valles RN; for sedation; 15::32 Fentanyl 25 mcg I.V. was administered by Rachel Valles RN; for sedation; 15::28 A MULTIPACK JL 4.0 5Fr catheter was advanced over the wire and used for Left Coronary Angiography. 15:21:50 LCA angiography performed. 15:24:00 Catheter exchanged over wire. 15:24:55 A MULTIPACK 3DRC 5Fr catheter was advanced over the wire and used for Right Coronary Angiography. 15:25:38 RCA angiography performed. 15::25 Catheter exchanged over wire. 15::32 A MULTIPACK Pigtail 5 Fr catheter was advanced over the wire and used for LV Angiography. 15:26:40 LV angiography performed. 15:27:34 LV gram done using GONZALEZ 15:27:36 LV hemodynamics recorded. 15:30:25 EF : 45 % 15:30:56 Aortic Root visualized 15::27 Procedure type changed to Cath procedure, Diagnostic procedure, LHC, LHC w/Coronaries, Aortic Root Angiography 15:31:33 Catheter exchanged over wire. 15::40 Contrast amount:Isovue 300 85ml. 15:31:48 Sheath removed intact; hemostasis achieved with Exoseal to the Right Femoral artery. 15:31:50 Procedure ended.(Physican Out) 15:32:16 Fluoroscopy time 03.30 minutes. 15:32:29 Fluoroscopy dose: 694 mGy 15:32:29 Flurop Dose total: 694 15:32:31 Sharps counted by scrub and verified by R.N. 15:32:32 Insertion/operative site no bleeding no hematoma. 15:32:35 Post-op/insertion site Right Femoral artery dressed using a 4 x 4 and Tegaderm. 15:32:41 Post right femoral artery:stable 15:32:43 Post Procedure Pulses reassessed and unchanged 15:32:46 Post procedure: right dorsailis pedis pulse 2+ Normal; easily identifiable; not easily obliterated. 15:32:49 Post procedure rhythm: sinus rhythm 15:32:50 Post procedure instruction explained to patient.Patient verbalizes understanding. 15:32:51 Procedure and supply charges have been captured, reviewed, submitted and are correct. 15:33:01 EXOSEAL 5Fr (EX500) opened to sterile field. 15:33:50 Procedure Complication : No complications 15:33:52 Vital chart was stopped 15:33:53 See physician's report for complete and final results. 15:33:55 Report given to Pre/Post Procedure Room. 15:34:00 Patient transfered to Pre/Post Procedure Room with Stretcher. 15:34:03 Full Disclosure recording stopped 15:34:03 Procedure ended. 15:34:06 End room use (Document Last) Device Usage Item Name Manufacture Quantity Catalog Hospital Part Current Minimal L ot# / Number Charge Number Stock Stock Serial# Code ACIST Acist 1 86185 304580 074496 213057 20 Syringe Medical (10181) Systems Inc Bag Microtek 1 2001S 647654 30452 123371 5 Decanter Medical Inc. () Medline Medline 1 [id number] 920509 90753 021825 5 Cath Pack ([id number]) DIAGNOSTIC St Jacob 1 301210 319103 269759 557417 30 WIRE .035 260cm J wire (330916) ACIST Hand Acist 1 98967 057184 062897 244500 5 Control Medical (91669) Systems Inc ACIST Acist 1 66918 187791 521720 496516 5 Manifold Medical (14045) Systems Inc DIAGNOSTIC Cardinal 1 [id number] 273455 04006 025106 30 Multipack Health 5Fr catheter set (UR2262) Tegaderm 4 3M 1 1626W 439279 460151 794789 5 x 4 (1626W) SHEATH 5FR Terumo 1 IRJ669 809312 992031 349486 5 [place] (VRX986) MULTIPACK Cardinal 1 524072 5 JL 4.0 5Fr Health catheter MULTIPACK Cardinal 1 410036 5 3DRC 5Fr Health catheter MULTIPACK Cardinal 1 182007 5 Pigtail 5 Health Fr catheter EXOSEAL 5Fr Cardinal 1 EX500 029093 882003 257289 10 (EX500) Health Signature Audit [place] Stage Time Signature Unsigned Intra-Procedure 08/23/2018 Asad Lizarraga RT(R) 3:36:47 PM Signatures Monitor : Asad Lizarraga RT Signature : Date : Time : [address] [place] [address]
[2018-08-23] MEDS ORDERED: ZANTAC300 MG PO (10:56)
[2018-08-23] MEDS ORDERED: PROTONIX40 MG PO (10:56)
[2018-08-23 11:02] VITALS: BP 149/81; Ht 175.3 cm; Wt 92.3 kg
[2018-08-23 11:25] LABS: BASOPHILS 0.2 % (0-2); EOSINOPHILS 3.5 % (0-7); HEMATOCRIT 39.7 % (42.0-54.0); HEMOGLOBIN 13.3 g/dL (13.5-17.5); IMMATURE GRANULOCYTES 0.2 % (0-5); LYMPHOCYTES 33.6 % (15-50); MCH 31.1 pg (26.0-34.0); MCHC 33.5 g/dL (31.0-37.0); MEAN PLATELET VOLUME 9.1 fL (7.4-10.4); MONOCYTES 10.4 % (2-11); NEUTROPHILS 52.1 % (40-80); RBC 4.27 10x6/uL (4.20-6.10); RDW 13.7 % (11.5-14.5)
[2018-08-23 11:27] LABS: ANION GAP 10.7 mmol/L (8-16); CALCIUM 8.9 mg/dL (8.5-10.1); CARBON DIOXIDE 28.3 mmol/L (21.0-32.0); CREATININE - SERUM 1.7 mg/dL (0.6-1.3)
[2018-08-23 11:42] LABS: PLATELET COUNT 237 10x3/uL (130-400)
--- NOTE | 2018-08-23 15:54 | NUR ---
RECIEVED TO ROOM VIA STRETCHER FROM FACE BOSS WITH 5 FR EXOSEAL R/GROIN CDI NO BLEEDING OR HEMATOMA NOTED. PATIENT CONNECTED TO MONITOR FOR OBSERVTAION WITH HR 49 BP 119/70 INTSTRUCTED PATIENT TO KEEP HEAD FLAT ON PILLOW WITH RLE STRAIGHT
--- NOTE | 2018-08-23 16:04 | NUR ---
PATIENT RESTING QUIETLY WITH NO DISTRESS. 5 FR EXOSEAL R/GROIN IS CDI WITH VSS FAMILY IS PRESENT AT BEDSIDE
--- NOTE | 2018-08-23 16:26 | NUR ---
5 FR EXOSEAL R/GROIN IS CDI WITH NAUSEA DENIED. SANDWICH AND SODA TO BEDSIDE WITH FAMILY TO ASSIST.
--- NOTE | 2018-08-23 16:43 | NUR ---
PATIENT DENIED PAIN OR NEEDS 5 FR EXOSEAL R/GROIN IS CDI WITH HR 67 FAMILY IS AT BEDSIDE
--- NOTE | 2018-08-23 17:27 | NUR ---
5 FR EXOSEAL R/GROIN IS CDI WITH CHEST PAIN DENIED REPOSITIONED TO SITTING WITH HOB UP 30 FOR COMFORT.
--- NOTE | 2018-08-23 17:45 | NUR ---
REPOSITIONED TO SITTING WITH HOB UP 30 FOR COMFORT. 5 FR EXOSEAL R/GROIN IS CDI WITH CHEST PAIN DENIED. VERBAL AND WRITTEN DISCHARGE GONE OVER WITH PATIENT AND FAMILY
--- NOTE | 2018-08-23 17:52 | NUR ---
VERBAL AND WRITTEN DISCHARGE GONE OVER WITH PATIENT AND FAMILY. 5 FR EXOSEAL R/GROIN IS CDI PATIENT LEFT VIA WC TO PARKING FOR TRANSPORT HOME CHEST PAIN DENIED
== END 2018-08-23 17:53 | disposition home or self-care (01) ==
LOC: D.CATH 10:34
PROVIDERS: ATTEND Internal Medicine Cardiovascular Disease
DX: I25.119 Atherosclerotic heart disease of native coronary artery with unspecified angina pectoris (principal); I71.2 Thoracic aortic aneurysm, without rupture; Z01.812 Encounter for preprocedural laboratory examination

== ENCOUNTER 2019-10-04 11:33 | Emergency (ER) | payer OTHER, MEDICARE ==
[~2019-10-04] VITALS: Ht 175.3 cm; Wt 90.9 kg
[~2019-10-04 11:33] MED LIST changes: +PROTONIX40 MG PO; +ZANTAC300 MG PO
[2019-10-04 11:40] VITALS: BP 139/87; Ht 175.3 cm; Wt 90.9 kg
[2019-10-04] MEDS ORDERED: MEDROL DOSE PACK4 MG PO (12:56)
== END 2019-10-04 13:10 | disposition home or self-care (01) ==
LOC: D.ER 11:33
DX: M79.18 Myalgia, other site (principal); T14.8XXA Other injury of unspecified body region, initial encounter; S13.4XXA Sprain of ligaments of cervical spine, initial encounter; R21 Rash and other nonspecific skin eruption; V89.2XXA Person injured in unspecified motor-vehicle accident, traffic, initial encounter; Y93.9 Activity, unspecified; Y92.9 Unspecified place or not applicable; I10 Essential (primary) hypertension; K21.9 Gastro-esophageal reflux disease without esophagitis; R51 Headache; M54.2 Cervicalgia; M54.9 Dorsalgia, unspecified; H92.03 Otalgia, bilateral

== ENCOUNTER → 2019-10-18 08:07 | Outpatient (CLI) | payer MEDICARE ==
[2019-10-04 11:40] VITALS: BMI 29.6
[~2019-10-18 08:07] MED LIST changes: +MEDROL DOSE PACK4 MG PO
== END | disposition home or self-care (01) ==
LOC: D.MRI 08:07
PROVIDERS: ATTEND Family Medicine
DX: M54.2 Cervicalgia (principal)

== ENCOUNTER 2020-08-03 22:13 | Inpatient (IN) | payer MEDICARE ==
[~2020-08-03] VITALS: Ht 175.3 cm; Wt 83.9 kg
[2020-08-03 23:01] LABS: HEMATOCRIT 38.9 % (42.0-54.0); HEMOGLOBIN 13.1 g/dL (13.5-17.5); LYMPHOCYTES 23.6 % (15-50); MCH 31.8 pg (26.0-34.0); MCHC 33.7 g/dL (31.0-37.0); MCV 94.4 fL (80.0-100.0); MEAN PLATELET VOLUME 8.8 fL (7.4-10.4); NEUTROPHILS 64.9 % (40-80); PLATELET COUNT 245 10x3/uL (130-400); RBC 4.12 10x6/uL (4.20-6.10); WBC 4.6 10x3/uL (4.8-10.8)
[2020-08-03 23:11] LABS: INR 1.02 (0.85-1.17); PROTIME 12.4 SECONDS (11.6-15.0)
[2020-08-03 23:27] VITALS: BP 109/68
[2020-08-03 23:32] LABS: ALBUMIN 3.5 g/dL (3.4-5.0); ALKALINE PHOSPHATASE 110 U/L (30-120); ALT (SGPT) 26 U/L (10-68); BILIRUBIN - TOTAL 0.15 mg/dL (0.2-1.3); C-REACTIVE PROTEIN 0.9 mg/dL (0.0-0.9); CALC OSMOLALITY 281 mosm/kg (275-300); CALCIUM 8.9 mg/dL (8.5-10.1); CHLORIDE - SERUM 106 mmol/L (98-107); CREATININE - SERUM 2.7 mg/dL (0.6-1.3); GLUCOSE 100 mg/dL (74-106); LIPASE 188 U/L (73-393); MAGNESIUM - SERUM 2.1 mg/dL (1.8-2.4); POTASSIUM - SERUM 4.6 mmol/L (3.5-5.1); PRO BNP 148 pg/mL (0-125); PROTEIN - SERUM 6.4 g/dL (6.4-8.2); SODIUM 139 mmol/L (136-145); THYROID STIMULATING HORMONE 1.47 uIU/mL (0.36-3.74); UREA NITROGEN 24 mg/dL (7-18); eGFR NON AFRICAN AMERICAN 25 mL/min (90-120)
[2020-08-03 23:33] LABS: TROPONIN-I < 0.017 ng/mL (0.000-0.060)
[2020-08-03 23:46] LABS: BILIRUBIN NEGATIVE (NEGATIVE); KETONE NEGATIVE (NEGATIVE); NITRITE NEGATIVE (NEGATIVE); UROBILINOGEN NORMAL mg/dL (< 2)
[2020-08-03 23:55] LABS: UDS - AMPHET NEGATIVE QUAL (NEGATIVE); UDS - BARB NEGATIVE QUAL (NEGATIVE); UDS - BENZO NEGATIVE QUAL (NEGATIVE); UDS - COCAINE NEGATIVE QUAL (NEGATIVE); UDS - OPIATE NEGATIVE QUAL (NEGATIVE); UDS - PCP NEGATIVE QUAL (NEGATIVE); UDS - THC NEGATIVE QUAL (NEGATIVE)
[2020-08-04] VITALS (8 sets, daily range): BP systolic 95–150; BP diastolic 58–72
[2020-08-04 00:09] LABS: CARBON DIOXIDE 25.2 mmol/L (21.0-32.0)
--- NOTE | 2020-08-04 00:54 | NUR ---
PATIENT AWAKE BUT DROWSY. ORIENTED TO PERSON, PLACE AND SITUATION. UNSTEADY GAIT, SLURRED SPEECH, SOME DIFFICULTY SELECTING WORDS NOTED. ON 2L VIA NASAL CANNULA. FLUIDS INFUSING TO PIV TO RIGHT AC. ORIENTED TO ROOM. BED IN LOW POSITION. CALL LIGHT IN REACH. FALL EDUCATION PROVIDED.
[2020-08-04] MEDS ORDERED: HYDROCODONE-AC1 EAC2 PO (01:43)
--- NOTE | 2020-08-04 08:26 | NUR ---
ASSESSMENT PER FLOW SHEET. PATIENT IS WITHOUT DISTRESS.FALL PREVENTION IN PLACE. SC'D ON PATIENT. IS INSTRUCTED. DOOR OPEN.
--- NOTE | 2020-08-04 08:30 | NUR ---
PATIENT UNABLE TO SPEAK AND MAKING SOUNDS. VERY ANXIOUS. RAPID CALLED SEE SHEET.
--- NOTE | 2020-08-04 08:35 | NUR ---
RAPID RESPONSE AT THIS TIME, PT EXPERIENCING EXPRESSIVE DYSPHASIA. HE IS ABLE TO ONLY SPEAK ONE OR TWO WORDS AT A TIME, AND THEN APPEARS TO HAVE DIFFICULTY SPEAKING ANY OTHER WORDS. HE IS TEARFUL WHEN HE IS UNABLE TO SPEAK. HE DENIES HEADACHE, TINGLINESS OR NUMBNESS TO EXTREMITIES, OR VISUAL CHANGES. HE HAS NO WEAKNESS TO EXTREMITIES, AND IS ABLE TO FOLLOW COMMANDS APPROPRIATELY. PUPILS PERRLA, 3 BRISK REACTION BILATERALLY, TONGUE MIDNLINE. SPOKE WITH ELIZABETH LEROY, ORDER RECIEVED FOR NEUROLOGY CONSULT. SPOKE WITH DR SIMON, ORDERS RECIEVED FOR MRI BRAIN NO CONTRAST, CAROTID DOPPLER, MRA HEAD AND NECK NO CONTRAST, ECHO, AND PLAVIX 75MG ONCE DAILY FIRST DOSE NOW. DR SIMON STATED HE WOULD BE BY TO SEE PT TODAY.
[2020-08-04 09:15] LABS: BASOPHILS 0.3 % (0-2); EOSINOPHILS 4.8 % (0-7); HEMATOCRIT 36.5 % (42.0-54.0); HEMOGLOBIN 12.2 g/dL (13.5-17.5); IMMATURE GRANULOCYTES 0.5 % (0-5); LYMPHOCYTE ABS# 1.03 10x3/uL (1.32-3.57); LYMPHOCYTES 27.3 % (15-50); MCH 31.5 pg (26.0-34.0); MCHC 33.4 g/dL (31.0-37.0); MCV 94.3 fL (80.0-100.0); MEAN PLATELET VOLUME 8.9 fL (7.4-10.4); MONOCYTES 10.9 % (2-11); NEUTROPHIL ABS# 2.12 10x3/uL (1.78-5.38); NEUTROPHILS 56.2 % (40-80); PLATELET COUNT 208 10x3/uL (130-400); RBC 3.87 10x6/uL (4.20-6.10); WBC 3.8 10x3/uL (4.8-10.8)
[2020-08-04 09:42] LABS: APTT 25.7 SECONDS (22.8-39.4); INR 1.02 (0.85-1.17); PROTIME 12.4 SECONDS (11.6-15.0)
[2020-08-04 09:48] LABS: ALBUMIN 3.2 g/dL (3.4-5.0); ALKALINE PHOSPHATASE 111 U/L (30-120); BILIRUBIN - TOTAL 0.22 mg/dL (0.2-1.3); CALC OSMOLALITY 283 mosm/kg (275-300); CALCIUM 8.3 mg/dL (8.5-10.1); CHLORIDE - SERUM 108 mmol/L (98-107); CREATINE KINASE 118 UL (21-232); CREATININE - SERUM 2.1 mg/dL (0.6-1.3); GLUCOSE 110 mg/dL (74-106); MAGNESIUM - SERUM 2.1 mg/dL (1.8-2.4); POTASSIUM - SERUM 4.1 mmol/L (3.5-5.1); PROTEIN - SERUM 5.6 g/dL (6.4-8.2); SODIUM 139 mmol/L (136-145); TROPONIN-I < 0.017 ng/mL (0.000-0.060); UREA NITROGEN 26 mg/dL (7-18); eGFR NON AFRICAN AMERICAN 33 mL/min (90-120)
[2020-08-04 09:49] LABS: ALT (SGPT) 40 U/L (10-68)
--- NOTE | 2020-08-04 12:00 | NUR ---
BACK FROM MRI
--- NOTE | 2020-08-04 14:30 | NUR ---
O ML POST VOID RESIDUAL PER BLADDER SCAN.
--- NOTE | 2020-08-04 17:31 | NUR ---
TYLENOL FOR HEADACHE ORDERED PER JUL. PATIENT IS WITHOUT CHANGE. CONT PLAN OF CARE.
--- NOTE | 2020-08-04 23:16 | NUR ---
PATIENT AWAKE AND ALERT. DENIES PAIN. ABLE TO TOLERATE SMALL SIPS OF WATER. UPDATE FAMILY VIA PHONE. WILL CONTINUE TO MONITOR.
[2020-08-05 00:48] VITALS: BP 147/81
[2020-08-05 05:14] LABS: BILIRUBIN - TOTAL 0.36 mg/dL (0.2-1.3); CALCIUM 8.7 mg/dL (8.5-10.1); CREATININE - SERUM 1.8 mg/dL (0.6-1.3); PROTEIN - SERUM 5.6 g/dL (6.4-8.2)
[2020-08-05 05:22] LABS: HEMOGLOBIN 12.3 g/dL (13.5-17.5); LYMPHOCYTE ABS# 1.14 10x3/uL (1.32-3.57); MCH 31.4 pg (26.0-34.0); MCHC 33.2 g/dL (31.0-37.0); MCV 94.4 fL (80.0-100.0); MEAN PLATELET VOLUME 9.1 fL (7.4-10.4); NEUTROPHIL ABS# 1.28 10x3/uL (1.78-5.38); PLATELET COUNT 210 10x3/uL (130-400); RBC 3.92 10x6/uL (4.20-6.10); RDW 13.9 % (11.5-14.5); WBC 2.9 10x3/uL (4.8-10.8)
[2020-08-05 05:58] LABS: EOSINOPHILS 5 % (0-7); LYMPHOCYTES 40 % (15-50); MONOCYTES 2 % (2-11); NEUTROPHILS 51 % (40-80); PLATELET ESTIMATE NORMAL
--- NOTE | 2020-08-05 06:06 | NUR ---
NOTIFIED BY TELEMETRY THAT PATIENT'S HR WAS 39. PATIENT SLEEPING AT THE TIME. WHEN AWAKENED, HR WOULD RISE TO 60, BUT QUICKLY DROP BACK TO LOW 40S. RECIEVED ORDER TO CONSULT CARDIOLOGY. NOTIFIED DR. INNA AVILA VIA PAGE. NO NEW ORDERS AT THIS TIME. HE WILL SEE THE PATIENT LATER. WILL CONTINUE TO MONITOR FOR CHANGES. NO CARDIAC MEDICATIONS SCHEDULED AT THIS TIME.
[2020-08-05 08:36] VITALS: BP 135/63
[2020-08-05 08:52] LABS: CHOL - HDL RATIO 2.3 ratio (2.3-4.9); LDL-HDL RATIO 1.1 ratio (1.5-3.5)
[2020-08-05 12:26] VITALS: BP 150/81
--- NOTE | 2020-08-05 13:23 | NUR ---
PATIENT INDEPENDENT IN ALL MOBILITY. WALKED IN [place] 100 FEET WITH SBA.
[2020-08-05 14:28] VITALS: Ht 175.3 cm; Wt 83.9 kg
[2020-08-05 17:00] VITALS: BP 111/84
[2020-08-05 20:00] VITALS: BP 145/66
[2020-08-06 04:00] VITALS: BP 130/84
[2020-08-06 06:10] LABS: BASOPHILS 0.3 % (0-2); EOSINOPHILS 7.2 % (0-7); HEMATOCRIT 37.3 % (42.0-54.0); HEMOGLOBIN 12.2 g/dL (13.5-17.5); IMMATURE GRANULOCYTES 0.3 % (0-5); LYMPHOCYTE ABS# 1.07 10x3/uL (1.32-3.57); LYMPHOCYTES 31.9 % (15-50); MCH 31.4 pg (26.0-34.0); MCHC 32.7 g/dL (31.0-37.0); MCV 95.9 fL (80.0-100.0); MEAN PLATELET VOLUME 9.1 fL (7.4-10.4); MONOCYTES 8.4 % (2-11); NEUTROPHIL ABS# 1.74 10x3/uL (1.78-5.38); NEUTROPHILS 51.9 % (40-80); PLATELET COUNT 233 10x3/uL (130-400); RBC 3.89 10x6/uL (4.20-6.10); RDW 13.9 % (11.5-14.5); WBC 3.4 10x3/uL (4.8-10.8)
[2020-08-06 07:17] LABS: ANION GAP 11.6 mmol/L (8-16); BILIRUBIN - TOTAL 0.16 mg/dL (0.2-1.3); CALCIUM 8.8 mg/dL (8.5-10.1); CARBON DIOXIDE 25.4 mmol/L (21.0-32.0); CREATININE - SERUM 1.9 mg/dL (0.6-1.3); MAGNESIUM - SERUM 2.1 mg/dL (1.8-2.4); PROTEIN - SERUM 5.7 g/dL (6.4-8.2)
--- NOTE | 2020-08-06 07:27 | NUR ---
PATIENT BRADYCARDIC AGAIN THIS AM. HR IN 40S. ASYMPTOMATIC, RESTING IN BED. CARDIOLOGY FOLLOWING.
[2020-08-06 08:26] VITALS: BP 142/74
[2020-08-06] MEDS ORDERED: PLAVIX75 MG PO (11:45)
--- NOTE | 2020-08-08 12:02 | MORECARE ---
CASE MANAGEMENT DISCHARGE SUMMARY PATIENT: ELY CEJA UNIT: [id number] ADM DATE: 08/04/20 AGE: 75 : 47 SEX: M ROOM/BED: D.2230 AUTHOR: CBDOC PHYSICIAN: REFERRING PHYSICIAN: VERONICA SPICER MD DATE OF SERVICE: 08/08/20 Case Management Discharge Planning Summary DCP REVIEW SUMMARY ANTICIPATED D/C DATE: EXPECTED LOS : CASE STATUS: DCP Initiated INITIAL REVIEW: 08/06/2020 INITIAL REVIEWER: Dee Dee Quezada FINAL DISCHARGE DISPOSITION: : FINAL REVIEWER: FINAL REVIEW DATE: DCP Focus Questions & Answers - Added on: QUESTION: ANSWER : PATIENT: ELY CEJA ENCOUNTER: [id number] MEDICAL RECORD#: [id number] ADMISSION DATE: 08/04/2020 DISCHARGE DATE: 08/06/2020 ATTENDING MD: VERONICA PETERSEN : AGE: 75 MARITAL STATUS: W DC PLAN ID: [id number] FACILITY: [facility] PRINTED ON: 08/08/20 12:02 CT All edits/amendments must be made on the electronic document DICTATION DATE: 08/08/201201 HOTEL CLERK: LOVE 08/08/20 120 RPT#: [id number] DC DATE:08/06/20 STATUS: DIS IN [facility] [address] [place] [address] END OF REPORT
== END 2020-08-06 13:07 | disposition home or self-care (01) | DRG 64 ==
LOC: EDBD 22:13 → D.ER 22:13 → D.MS 23:44 → OBSVTIME 23:44 → D.MS 08-04 12:08
PROVIDERS: Family Medicine; ADMIT Family Medicine; ATTEND Family Medicine
DX: I63.81 Other cerebral infarction due to occlusion or stenosis of small artery (principal); G93.41 Metabolic encephalopathy; N17.9 Acute kidney failure, unspecified; R47.01 Aphasia; I10 Essential (primary) hypertension; I48.0 Paroxysmal atrial fibrillation; I25.10 Atherosclerotic heart disease of native coronary artery without angina pectoris; I49.8 Other specified cardiac arrhythmias; R26.89 Other abnormalities of gait and mobility; R47.1 Dysarthria and anarthria; K44.9 Diaphragmatic hernia without obstruction or gangrene; G47.33 Obstructive sleep apnea (adult) (pediatric); Z85.46 Personal history of malignant neoplasm of prostate; K21.9 Gastro-esophageal reflux disease without esophagitis; D64.9 Anemia, unspecified